=== PATIENT | male | born 1960 | race Caucasian/White ===

== ENCOUNTER → 2018-01-20 12:27 | Outpatient (CLI) | payer OTHER ==
[2013-05-12 18:09] VITALS: BMI 21.9
[~2018-01-20 12:27] MED LIST: ACETAMINOPHEN500 M1; BACTRIM DS TABL1 TAB PO; DIFLUCAN100 MG PO; LAC-HYDRIN 5226 ML
== END | disposition home or self-care (01) ==
LOC: D.US 12:27
DX: I73.1 Thromboangiitis obliterans [Buerger's disease] (principal); L03.011 Cellulitis of right finger

== ENCOUNTER → 2018-01-21 16:06 | Outpatient (CLI) | payer OTHER ==
[2013-05-12 18:09] VITALS: BMI 21.9
[~2018-01-21 16:06] MED LIST changes: +BACTRIM DS1 TAB PO; +BAYER CHEWABLE81 MG PO; +CARDIZEM30 MG PO; +DOXYCYCLINE HY100 M2 PO; +NEURONTIN 300300 MG PO; +NORCO 7.5/325 T1 TA1 PO; +WELLBUTRIN SR150 MG PO
[2018-02-05 13:13] VITALS: BMI 20.7
== END | disposition home or self-care (01) ==
LOC: D.CT 16:06
DX: I73.1 Thromboangiitis obliterans [Buerger's disease] (principal)

== ENCOUNTER 2018-01-28 11:33 | Outpatient (CLI) | payer OTHER ==
[~2018-01-28] VITALS: Ht 170.2 cm; Wt 60.0 kg
--- NOTE | ~2018-01-28 | TEE ---
PATIENT:MELLY BORRERO MEDICAL RECORD: [id number] LOCATION:D.CAT AGE OF PATIENT: 57 ADMISSION DATE: 01/28/18 SEX: M REFERRING PHYSICIAN: INTERPRETING PHYSICIAN: RADHA GAITAN MD TRANSESOPHAGEAL ECHOCARDIOGRAM Date: 01/28/18 IVETTE CHARGE Y INDICATIONS: ASSESS FOR CLOTS PREMEDICATIONS: PATIENT'S RESPONSE PROCEDURE DOPPLER MEASUREMENTS: LVIT LA PA RA LVOT RVOT Asc. Ao AV Gradient Peak AV Mean AV Area MV Gradient Peak MV Mean MV Area INTERPRETATION: Doppler: 2-D: COLOR FLOW DOPPLER NORMAL SALINE STUDY: MISCELLANOUS: DIAGNOSIS: PLAN: Billing Clinician:3 Dr. Brown Face Painter: Marion SMITH COMMENTS: DATE OF SERVICE: 01/28/2018 TRANSESOPHAGEAL NOTE After general sedation via TIVA via anesthesia, transesophageal Omniplane probe was placed in the distal esophagus and proximal stomach without difficulty. FINDINGS: No LVH. LV internal dimensions are normal. Wall motion is normal. EF is greater than or equal to 55%. Aortic valve is tricuspid with good valve TRANSESOPHAGEAL ECHOCARDIOGRAM REPORT [id number] MELLY BORRERO excursion. No significant AI. Left atrium appears normal. Left atrial appendage is well visualized with good contractility both by 2-D and Doppler interrogation. Mitral valve is well visualized and shows no prolapse. Trace MR only. Right-sided chamber is grossly normal. Trace TR. No evidence of ASD or VSD by Doppler and color flow imaging. At the end of procedure, the transesophageal Omniplane probe was turned posteriorly. This showed no atherosclerotic debris of the descending aorta. TRANSINT:[id number] Voice Confirmation ID: [id number] DOCUMENT ID: [id number] at 1302 CC: [id number] DICTATION DATE: 01/28/18 1343 CUSTOMER SERVICE REPRESENTATIVE TELLER: 01/29/18 0422 DEP CLI 01/28/18 [id number] [place] [address]
--- NOTE | ~2018-01-28 | HEMODYNAMI ---
PATIENT:MELLY BORRERO MEDICAL RECORD: [id number] : 64 LOCATION:D.CAT ADMISSION DATE: 01/28/18 Generatedon:01/28/201813:44 Patient name: MELLY BORRERO Patient #: [id number] SSN: : 1960 Date of study: Page: Of Hemodynamic Procedure Report Patient Data Patient Demographics Procedure consent was obtained First Name: MELLY Gender: Male Last Name: ADAIR : 1960 Patient #: [id number] Age: 57 year(s) Race: Unknown Additional ID: [id number] Contact details [address]: [address] [place] [address] State: [place] City: [place] Zip code: [address] Past Medical History Allergies: No known allergies Admission Admission Data Admission Date: 01/28/2018 Admission Time: 11:33 Procedure Procedure Types Cath Procedure Diagnostic Procedure IVETTE Procedure Description Procedure Staff Name Function Wai Grant MD Performing Physician Daisha Ramirez RT Monitor Lonnie Hong RN Nurse Earl Meek Label Coder Pramod Baxter CRNA Additional personnel Procedure Medications Medication Administration Route Dosage Oxygen etCO2 Nasal cannula 2 l/min Hurricaine Refugio P.O. 1 Sprays Refer to Anesthesia Notes for Sedation Medications Hemodynamics Rest Pre Cath Intra NCS Post Cath Vital Signs Time Heart Resp SPO2 etCO2 NIBP (mmHg) Rhythm Pain Sedation Rate (ipm) (%) (mmHg) Status Level (bpm) 13:22:03 83 20 98 30.8 158/92(126) NSR 0 (11) 10(A) , No pain 13:26:22 79 18 99 33 156/90(122) NSR 0 (11) 10(A) , No pain 13:31:49 85 18 98 39.8 147/82(120) NSR 0 (11) 10(A) , No pain 13:35:57 95 12 98 22.5 145/98(125) NSR 0 (11) 9(A) , No pain 13:40:11 88 19 100 31.5 138/85(111) NSR 0 (11) 9(A) , No pain 13:42:18 91 15 97 27 133/83(97) NSR 0 (11) 10(A) , No pain Medications Time Medication Route Dose Verified Delivered Reason Notes Effectiv eness by by 13:30:46 Oxygen etCO2 2 Wai Fleming used for Nasal l/min [place] Gely tie in machine operator cannula 13:31:16 Hurricaine P.O. 1 Wai Carreno used for Refugio Sprays [facility] procedure MD ANN 13:31:21 Refer to Wai Carreno Anesthesia [facility] Notes for MD ANN Sedation Medications Procedure Log Time Note 13:10:21 Daisha Counts RT(R) sent for patient. Start room use. 13:17:29 Time tracking: Regular hours (M-F 7:00 - 5:00) 13:17:32 Plan of Care:Hemodynamics will remain stable., Cardiac rhythm will remain stable., Comfort level will be maintained., Respiratory function will remain adequate., Patient/ family verbilizes understanding of procedure., Procedure tolerated without complication., Recovers from procedure without complications.. 13:17:37 Patient received from Pre/Post Procedure Room to CCL 3 Alert and oriented. Tansferred to table in Supine position. 13:17:38 Warm blankets applied, and blessing hugger turned on for patient comfort. 13:17:39 Correct patient and procedure confirmed by team. 13:17:40 Signed procedure consent form obtained from patient. 13:17:40 ECG and BP/O2 sat monitors applied to patient. 13:17:41 Full Disclosure recording started 13:20:58 Vital chart was started 13:21:02 Rhythm: sinus rhythm 13:21:27 H&P Date Dictated: 01/18/2018 Within 30 days and on chart., H&P Addendum completed by physician on day of procedure. (MUST COMPLETE FOR ALL OUTPATIENTS). 13:21:34 Pre-procedure instructions explained to patient. 13:21:34 Pre-op teaching completed and patient verbalized understanding. 13:21:38 Family unavailable. 13:21:39 Patient NPO since Midnight. 13:22:15 Patient allergic to No known allergies 13:22:16 Is the patient allergic to Iodine/contrast media? No. 13:22:27 Is patient on blood thinner?No 13:22:31 Patient diabetic? No. 13:22:48 SEE ANESTHESIA NOTES FOR PRE ASSESSMENT 13:23:07 Patient pain scale 0/10 ?. 13:23:14 IV patent on arrival in right forearm with 0.9% NaCl at [facility]. 13:23:15 Lab results completed and on chart. 13:23:59 Alarms reviewed by Sameera Pierre 13:24:20 Earl Meek Loader Unloader present for IVETTE. 13:29:37 Pramod Baxter CRNA present and monitoring patient for TIVA. 13:30:46 Oxygen 2 l/min etCO2 Nasal cannula was administered by Lonnie Hong RN; used for procedure; 13:31:16 Hurricaine Refugio 1 Sprays P.O. was administered by Wai Grant MD; used for procedure; 13:31:21 Refer to Anesthesia Notes for Sedation Medications was administered by Wai Grant MD; ; 13:33:17 Final Timeout: patient, procedure, and site verified with staff and physician. All members of the team are in agreement. 13:33:20 Physical assessment completed. ASA score P 2 - A patient with mild systemic disease as per Wai Grant MD. 13:33:22 Post-procedure physical assessment completed. ASA score P 2 - A patient with mild systemic disease as per Wai Grant MD. 13:33:26 Sedation plan: TIVA Medication:Propofol 13:35:19 IVETTE started. 13:37:48 IVETTE completed. 13:37:51 Procedure ended.(Physican Out) 13:38:01 Post procedure rhythm: unchanged. 13:39:24 Post procedure instruction explained to patient.Patient verbalizes understanding. 13:39:24 Patient needs reinforcement of post procedure teaching. 13:39:30 See physician's report for complete and final results. 13:42:54 Vital chart was stopped 13:43:01 Report given to Pre/Post Procedure Room. 13:43:04 Patient transfered to Pre/Post Procedure Room with Stretcher. 13:44:03 End room use (Document Last) Signature Audit Sandy Stage Time Signature Unsigned Intra-Procedure 01/28/2018 Daisha 1:44:16 PM Counts RT(R) Signatures Monitor : Daisha Signature : Counts RT Date : Time : [address] [place] [address]
[~2018-01-28 11:33] MED LIST changes: -BACTRIM DS1 TAB PO; -BAYER CHEWABLE81 MG PO; -CARDIZEM30 MG PO; -DOXYCYCLINE HY100 M2 PO; -NEURONTIN 300300 MG PO; -NORCO 7.5/325 T1 TA1 PO; -WELLBUTRIN SR150 MG PO
[2018-01-28] MEDS ORDERED: DOXYCYCLINE HY100 M2 PO (11:50)
[2018-01-28] MEDS ORDERED: WELLBUTRIN SR150 MG PO (11:51)
[2018-01-28] MEDS ORDERED: NEURONTIN 300300 MG PO (11:51)
[2018-01-28] MEDS ORDERED: CARDIZEM30 MG PO (11:53)
[2018-01-28 12:05] VITALS: BP 145/85; Ht 170.2 cm; Wt 60.0 kg
[2018-01-28 12:19] LABS: BASOPHILS 0.4 % (0-2); EOSINOPHILS 5.8 % (0-7); HEMATOCRIT 43.2 % (42.0-54.0); HEMOGLOBIN 14.8 g/dL (13.5-17.5); IMMATURE GRANULOCYTES 0.1 % (0-5); LYMPHOCYTES 40.3 % (15-50); MCHC 34.3 g/dL (31.0-37.0); MCV 93.3 fL (80.0-100.0); MEAN PLATELET VOLUME 9.4 fL (7.4-10.4); MONOCYTES 8.7 % (2-11); NEUTROPHILS 44.7 % (40-80); PLATELET COUNT 276 10x3/uL (130-400); RBC 4.63 10x6/uL (4.20-6.10); WBC 7.2 10x3/uL (4.8-10.8)
[2018-01-28 12:34] LABS: CALC OSMOLALITY 281 mosm/kg (275-300); CALCIUM 8.7 mg/dL (8.5-10.1); CARBON DIOXIDE 30.3 mmol/L (21.0-32.0); CHLORIDE - SERUM 104 mmol/L (98-107); CREATININE - SERUM 0.8 mg/dL (0.6-1.3); GLUCOSE 82 mg/dL (74-106); POTASSIUM - SERUM 4.1 mmol/L (3.5-5.1); SODIUM 141 mmol/L (136-145); UREA NITROGEN 17 mg/dL (7-18); eGFR NON AFRICAN AMERICAN > 90 mL/min (90-120)
[2018-01-28 12:42] LABS: INR 0.97 (0.85-1.17); PROTIME 12.5 SECONDS (11.6-15.0)
[2018-02-04] MEDS ORDERED: BACTRIM DS1 TAB PO (13:21)
[2018-02-04] MEDS ORDERED: BAYER CHEWABLE81 MG PO (13:21)
== END 2018-01-28 15:40 | disposition home or self-care (01) ==
LOC: D.CATH 11:33
PROVIDERS: Internal Medicine Interventional Cardiology
DX: I26.99 Other pulmonary embolism without acute cor pulmonale (principal); Z01.812 Encounter for preprocedural laboratory examination

== ENCOUNTER → 2018-02-01 08:47 | Outpatient (CLI) | payer OTHER ==
[2018-01-28 12:05] VITALS: BMI 20.7
--- NOTE | ~2018-02-01 | EC ---
PATIENT:MELLY BORRERO DATE OF SERVICE: 02/01/18 SEX: M MEDICAL RECORD: [id number] DATE OF : 64 LOCATION:D.[facility]ER[facility] AGE OF PATIENT: 57 ADMISSION DATE: 02/01/18 REFERRING PHYSICIAN: INTERPRETING PHYSICIAN: RADHA GAITAN MD ECHOCARDIOGRAM REPORT ECHO CHARGES 4 ECHO COMPLETE Date: 02/01/18 CLINICAL DIAGNOSIS: BEURGER'S DISEASE ECHOCARDIOGRAPHIC MEASUREMENTS (adult normal given) AC root (d.<3.7cm) 3.0 cm LV Septum d (<1.2 cm> 1.0 cm Valve Excursion 2.0 cm LV Septum (systole) 1.8 cm Left Atria (s.<4.0cm> 2.4 cm LVPW d(<1.2cm) 1.2 cm RV (d.<2.3cm) 2.0 cm LVPW (sytole) 1.8 cm LV diastole(<5.6CM) 4.0 cm MV E-F(>70mm/sec) cm LV systole 2.0 cm LVOT Diameter 1.7 cm MV exc.(>10mm) cm Est.ejection fraction (50-75%) % DOPPLER: LVIT cm/sec A 73.0 cm/sec E 65.0 cm/sec LA cm/sec RVSP 26.0 mmHg LVOT 83.0 cm/sec AOP1/2T m/s Asc. Ao 123 cm/sec RVOT 72.0 cm/sec RA cm/sec PA 91.0 cm/sec AV Gradient Peak 6.1 mmHg AV Mean 2.6 mmHg AV Area 1.7 cm MV Gradient Peak 3.6 mmHg MV Mean 1.5 mmHg MV Area cm COMMENTS: ECHO WITH BUBBLE STUDY Religious Studies Professor: Chaparro RIVERO [place] Senior Pl Sql Developer: 3 Dr. Brown TAPE# PACS Pericardial Effusion N DATE OF SERVICE: 02/01/2018 ECHOCARDIOGRAM REPORT WITH BUBBLE STUDY No LVH. LV internal dimensions are normal. Wall motion is normal. EF greater than 55%. Aortic valve is tricuspid. There is no evidence of stenosis by Doppler interrogation. Left atrium is normal. Mitral valve shows no prolapse. Trace MR. Right-sided chamber is grossly normal. Trace TR. A bubble study performed with agitated saline shows no evidence of ASD or VSD or other evidence of intracardiac shunt. ECHOCARDIOGRAM REPORT [id number] MELLY BORRERO TRANSINT:[id number] Voice Confirmation ID: [id number] DOCUMENT ID: [id number] RADHA GAITAN MD at 1407 CC: [id number] DICTATION DATE: 02/01/18 1207 TRANSPORTATION EQUIPMENT PAINTER: 02/01/18 1250 DEP CLI 02/01/18 [id number] [place] [address]
[~2018-02-01 08:47] MED LIST changes: +BACTRIM DS1 TAB PO; +BAYER CHEWABLE81 MG PO; +CARDIZEM30 MG PO; +DOXYCYCLINE HY100 M2 PO; +NEURONTIN 300300 MG PO; +NORCO 7.5/325 T1 TA1 PO; +WELLBUTRIN SR150 MG PO
== END | disposition home or self-care (01) ==
LOC: D.ECHO 08:47
DX: N02.8 Recurrent and persistent hematuria with other morphologic changes (principal)

== ENCOUNTER 2018-02-05 09:50 | Day surgery (SDC) | payer OTHER ==
[~2018-02-05] VITALS: Ht 170.2 cm; Wt 60.0 kg
--- NOTE | ~2018-02-05 | OP ---
PATIENT NAME: MELLY BORRERO MEDICAL RECORD: [id number] :64 LOCATION:DOMENIC ADMISSION DATE: SURGEON: TD ALMAGUER DO DATE OF OPERATION: 02/05/2018 PROCEDURE PERFORMED: Right index fingertip amputation. PREOPERATIVE DIAGNOSIS: Buerger's disease, right index finger. POSTOPERATIVE DIAGNOSIS: Buerger's disease, right index finger. INDICATIONS: Mr. Borrero is a 57-year-old male who developed Buerger's disease quite some time ago. He had necrosis of the distal tip of the right index finger which came back about to the DIP joint over more proximal. Primary care watched it for sometime and he stopped smoking. It stopped progressing and was back to a stable point. I had seen him in the office and informed him that as long as he stops smoking and remains that way, I would do a finger amputation; but if he starts smoking again, he may still need more amputationi if the tip did not live that I amputated, what was left of it. He is aware and also aware of the risks of infection and need for further surgery. The patient consented to the procedure. SURGEON: Td Almaguer DO DESCRIPTION OF PROCEDURE: The patient was taken to the operative suite and laid in the supine position. The right upper extremity was prepped and draped in sterile fashion. Two grams of Ancef were given preoperatively. Time-out was performed and everyone was in agreement with correct side, site, patient, and procedure. Then, the right finger took a #15 blade scalpel and I did a circumferential skin incision around the tip just proximal to where the necrosis was. It had good bleeding from both the radial and ulnar side of the index finger, leaving like a guillotine-type amputation. The middle phalanx was exposed and rongeured back to below the level of the skin. Then, a V-Y flap was cut on the volar side of the finger and brought up approximately to the dorsal side. The wound was closed with 4-0 Monocryl. After the skin incision was made and once the amputation was complete, a tourniquet was put on the base of the finger with a 6 glove using the small finger of the glove. This was removed after the procedure was completed and was up for a total of 5 minutes. Blood loss was minimal. The finger was then blocked with 0.5% Marcaine. Digital block was done with 10 mL. The finger was then wrapped with Adaptic and 4 x 4's. The finger was wrapped that way and the Kerlix was used to wrap down around the hand and the wrist. The wrist and the hand part were covered lightly with Coban. There was no Coban placed on the finger as to restrict any blood. The patient was then awakened and taken to recovery in stable condition. BLOOD LOSS: Minimal. COMPLICATIONS: None. TRANSINT:[id number] Voice Confirmation ID: [id number] DOCUMENT ID: [id number] OPERATIVE REPORT [id number] MELLY BORRERO,TD Abbasi DO at 1037 CC: TRINA SPAIN [id number] DICTATION DATE: 02/05/18 1516 SALES ATTENDANT: 02/05/18 1721 [facility] 02/05/18 [facility] [address] [place] [address]
[~2018-02-05 09:50] MED LIST changes: -NORCO 7.5/325 T1 TA1 PO
[2018-02-05 10:50] LABS: BASOPHILS 0.7 % (0-2); EOSINOPHILS 6.4 % (0-7); HEMOGLOBIN 14.8 g/dL (13.5-17.5); IMMATURE GRANULOCYTES 0.1 % (0-5); LYMPHOCYTES 36.6 % (15-50); MCH 31.6 pg (26.0-34.0); MCHC 33.6 g/dL (31.0-37.0); MCV 93.8 fL (80.0-100.0); MEAN PLATELET VOLUME 9.7 fL (7.4-10.4); MONOCYTES 9.2 % (2-11); PLATELET COUNT 233 10x3/uL (130-400); RBC 4.69 10x6/uL (4.20-6.10); RDW 13.4 % (11.5-14.5); WBC 8.4 10x3/uL (4.8-10.8)
[2018-02-05 10:52] LABS: APPEARANCE CLEAR (CLEAR); BILIRUBIN NEGATIVE (NEGATIVE); COLOR YELLOW (YELLOW); GLUCOSE NEGATIVE (NEGATIVE); KETONE NEGATIVE (NEGATIVE); NITRITE NEGATIVE (NEGATIVE); PROTEIN NEGATIVE (NEGATIVE); UROBILINOGEN NORMAL (NORMAL)
[2018-02-05 13:13] VITALS: BP 116/97; Ht 170.2 cm; Wt 60.0 kg
[2018-02-05] MEDS ORDERED: BACTRIM DS1 TAB PO (15:11)
[2018-02-05] MEDS ORDERED: NORCO 7.5/325 T1 TA1 PO (15:11)
== END 2018-02-05 17:05 | disposition home or self-care (01) ==
LOC: D.OPS 09:50 → D.PAN 10:00 → D.OPS 12:25
PROVIDERS: Anesthesiology
DX: I73.1 Thromboangiitis obliterans [Buerger's disease] (principal); Z87.891 Personal history of nicotine dependence; Z01.812 Encounter for preprocedural laboratory examination